=== PATIENT | male | born 1955 | race African-American/Black ===

== ENCOUNTER 2016-02-28 21:39 | Emergency (ER) | payer OTHER ==
[2016-02-28 22:16] LABS: MANUAL DIFF NEEDED? NO
[2016-02-28 22:22] LABS: URINE CULTURE PL NEEDED? NO; URINE SOURCE VOIDED
[2016-02-28 22:25] LABS: BASO% 1.1 % (0.0-0.8); EOS# 0.14 X1000 (0.0-0.7); EOS% 1.7 % (0.0-10.0); HEMATOCRIT 44.5 % (42.0-52.0); HEMOGLOBIN 15.4 g/dL (14.0-18.0); IMM GRAN# 0.02 X1000 (0.0-0.04); IMM GRAN% 0.2 % (0.0-0.5); LYMPH# 3.11 X1000 (1.2-3.4); LYMPH% 37.7 % (20.5-51.1); MCH 29.1 PG (27-31); MCHC 34.6 g/dL (33-37); MONO% 8.5 % (1.7-9.3); MPV 11.1 FL (7.4-10.4); NEUT% 50.8 % (42.2-75.2); PLT 255 X1000 (130-400)
--- NOTE | 2016-02-28 22:28 | PROVIDER DOCUMENTATION ---
HPI-General Adult - General Chief Complaint: High Blood Sugar Stated Complaint: HIGH BLOOD SUGAR Time Seen by Provider: 02/28/16 22:11 Source: patient Allergies/Adverse Reactions: Patient Allergies Allergy/AdvReac Type Severity Reaction Status Date / Time No Known Allergies Allergy Verified 02/28/16 21:53 Home Medications: Insulin Glargine [Lantus] 20 unit SUBQ QAM 05/15/15 LISINOpril [Prinivil] 5 mg PO DAILY 05/15/15 SIMVAstatin [Zocor] 40 mg PO QHS 05/15/15 - History of Present Illness -Gen Adult Nature of Presenting Problems: 60 y/o AAM presents to the ED saying his blood sugar read high on his monitor at home. Pt states for about a month now complains of dry mouth, frequent urination, excessive thirst and blurry vision. Pty states he has been taking Lantus and was on Metformin although states he stopped taking it. Location of Pain/Injury: reports: none Pain Radiation: reports: no radiation Quality of Pain: reports: none Onset/Duration: reports: gradual Timing: reports: still present - Diabetes Related Context Context: reports: high blood sugar Review of Systems - Adult - REVIEW OF SYSTEMS - ADULT Constitutional: denies: chills, fever Eyes: reports: blurred vision. denies: discharge, dry eyes, eye pain Ears, Nose, Mouth & Throat: reports: other (dry mouth) Cardiovascular: denies: chest pain, edema Respiratory: denies: cough, shortness of breath, wheezing Gastrointestinal: denies: abdominal pain, nausea, vomiting Genitourinary: reports: frequency, urgency. denies: dysuria, hematuria, incontinence Musculoskeletal: reports: no symptoms reported Integumentary: reports: no symptoms reported Neurological: reports: no symptoms reported Psychiatric: reports: no symptoms reported Endocrine: reports: no symptoms reported Hematologic/Lymphatic: reports: no symptoms reported Allergic/Immunologic: reports: no symptoms reported All Other Systems: Reviewed and Negative Past History - Adult - PAST MEDICAL HISTORY-ADULT Review of Records: reports: Old Records Reviewed, Nursing Assessment Review, Medications Reviewed Major Childhood Illnesses: reports: denies history Cardiovascular: reports: HTN, hyperlipidemia. denies: cardiac disease, A-Fib, CAD, [place] Respiratory: reports: denies history Gastrointestinal: reports: denies history Obstetrical/Gynecological: reports: denies history Genitourinary: reports: kidney stones. denies: cancer, kidney disease, polycystic kidney disease, prostate cancer Musculoskeletal: reports: chronic pain, intervertebral disc disease Neurological: reports: denies history Psychiatric: reports: denies history Endocrine/Immune: reports: Diabetes. denies: thyroid disorder Other Conditions: reports: denies history - PRIOR SURGERIES/PROCEDURES Surgical/Procedure History: reports: none, other (partial right lober) - FAMILY HISTORY Family History: reviewed, not pertinent Physical Exam-General - PHYSICAL EXAM-ADULT Initial Vital Signs Reviewed: Yes - CONSTITUTIONAL General Appearance: appears well, alert, no apparent distress - EYES Eyes: PERRL/EOMI, pink conjunctivae - HEAD, EARS, NOSE, MOUTH & THROAT HENMT: moist mucous membranes, normal ENT inspection, TMs normal, pharynx normal - NECK Neck: non-tender, full range of motion, supple - RESPIRATORY Respiratory: lungs clear, normal breath sounds, no pleuratic chest pain, no respiratory distress, no accessory muscle use - CARDIOVASCULAR Cardiovascular: normal peripheral pulses, regular rate, rhythm - GASTROINTESTINAL (ABDOMEN) Abdominal Exam: normal bowel sounds, non tender, soft - MUSCULOSKELETAL Back Exam: normal inspection, no CVA tenderness, no vertebral tenderness Extremity: normal range of motion, non-tender, normal gait - SKIN Integumentary: normal color, normal turgor, warm/dry - NEUROLOGIC Neurologic: grossly normal, no motor/sensory deficits - PSYCHIATRIC Psych/Mental Status: normal mood/affect, normal thought content, normal thought process, oriented x 3 Progress - PLAN OF CARE/RESULTS Progress/Plan/Lab Results: Orders Category Date Time Status Finger Stick Blood Sugar (ED) DIRECTED Care 02/29/16 00:56 Active A1C [A1C HGB W EST AVG GLUCOSE] [CHEM] Stat Lab 02/28/16 22:10 Completed CBC WITH DIFF [HEME] Stat Lab 02/28/16 22:10 Completed COMPREHENSIVE METABOLIC PANEL [CHEM] Stat Lab 02/28/16 22:10 Completed UA [URINALYSIS PL W/POSS RFLX CULT] [URINALYSIS] Stat Lab 02/28/16 22:15 Completed 0.9% Sodium Chloride Inj [Ns] 1,000 ml Med 02/28/16 22:48 Discontinued .ROUTE As Directed 0.9% Sodium Chloride Inj [Ns] 1,000 ml Med 02/28/16 22:48 Discontinued IV 999 mls/hr 0.9% Sodium Chloride Inj [Ns] 1,000 ml Med 02/28/16 23:40 Discontinued IV 999 mls/hr Insulin Lispro ([place]) [Humalog ([place])] Med 02/28/16 22:49 Discontinued 20 units SUBQ NOW ONE Vital Signs Temp Pulse Resp BP Pulse Ox 02/28/16 21:49 98 F 84 16 135/74 97 No Known Allergies Allergy (Verified 02/28/16 21:53) Insulin Glargine [Lantus] 20 unit SUBQ QAM 05/15/15 LISINOpril [Prinivil] 5 mg PO DAILY 05/15/15 SIMVAstatin [Zocor] 40 mg PO QHS 05/15/15 Insulin Glargine,Hum.rec.anlog [Lantus Solostar] 24 unit SQ DAILY #5 insuln.pen 02/29/16 Laboratory 02/28/16 02/28/16 02/28/16 22:15 22:10 22:10 WBC 8.26 RBC 5.30 Hgb 15.4 Hct 44.5 MCV 84.0 MCH 29.1 MCHC 34.6 RDW Std Deviation 12.4 Plt Count 255 MPV 11.1 H Immature Gran % (Auto) 0.2 Neut % (Auto) 50.8 Lymph % (Auto) 37.7 [place] % (Auto) 8.5 Eos % (Auto) 1.7 Baso % (Auto) 1.1 H Immature Gran # (Auto) 0.02 Neut # (Auto) 4.20 Lymph # (Auto) 3.11 [place] # (Auto) 0.70 H Eos # (Auto) 0.14 Baso # (Auto) 0.09 Sodium Potassium Chloride Carbon Dioxide Anion Gap BUN Creatinine Estimated GFR/1.73 m2 BUN/Creatinine Ratio Glucose Estimat Average Glucose 468 Hemoglobin A1c 17.9 H Calculated Osmolality Calcium Total Bilirubin AST ALT Alkaline Phosphatase Total Protein Albumin Globulin Albumin/Globulin Ratio Urine Source VOIDED Urine Color YELLOW Urine Clarity CLEAR Urine pH 6.0 Ur Specific [place] 1.010 Urine Protein NEGATIVE Urine Ketones 2+(Moderate) A Urine Blood NEGATIVE Urine Nitrite NEGATIVE Urine Bilirubin NEGATIVE Urine Urobilinogen NORMAL Urine Microscopic RBC <10 Urine WBC NEGATIVE Urine Microscopic WBC <10 Ur Epithelial Cells <10 Urine Bacteria NEGATIVE Urine Glucose 3+(500 mg/dL) A 02/28/16 22:10 WBC RBC Hgb Hct MCV MCH MCHC RDW Std Deviation Plt Count MPV Immature Gran % (Auto) Neut % (Auto) Lymph % (Auto) [place] % (Auto) Eos % (Auto) Baso % (Auto) Immature Gran # (Auto) Neut # (Auto) Lymph # (Auto) [place] # (Auto) Eos # (Auto) Baso # (Auto) Sodium 127 L Potassium 5.0 Chloride 86 L Carbon Dioxide 28 Anion Gap 14 BUN 27 H Creatinine 1.4 H Estimated GFR/1.73 m2 52 BUN/Creatinine Ratio 19 Glucose 825 H* Estimat Average Glucose Hemoglobin A1c Calculated Osmolality 299 Calcium 9.6 Total Bilirubin 0.30 AST 23 ALT 49 H Alkaline Phosphatase 96 Total Protein 7.4 Albumin 4.5 Globulin 3.0 Albumin/Globulin Ratio 2.0 Urine Source Urine Color Urine Clarity Urine pH Ur Specific [place] Urine Protein Urine Ketones Urine Blood Urine Nitrite Urine Bilirubin Urine Urobilinogen Urine Microscopic RBC Urine WBC Urine Microscopic WBC Ur Epithelial Cells Urine Bacteria Urine Glucose - REASSESSMENT Reassessment #1 Time Reassessed: 01:05 Status: improving Reassessment Comment: Finger stick 279 Departure - Departure Time of Disposition Order: 01:04 DIAGNOSIS: Diabetes, Noncompliance with medication regimen, Hyperglycemia, Uncontrolled blood glucose Disposition: HOME 01 Certified Medical Emergency: Emergent Condition: Stable Additional Instructions: Follow up with PCP or [facility] Follow Up Instructions: You have been treated by a care provider in the Emergency Department. These instructions are being provided to you so you can have an understanding of how to care for yourself upon discharge. Upon discharge from the Emergency Department, you are responsible for making arrangements for follow-up care by a physician of your choice. Take all prescribed medications as directed. Return to the Emergency Department immediately for any new or worsening symptoms. You may call the Physician Referral phone number at [phone] to obtain a list of Physicians who are taking new patients. Prescriptions: Insulin Glargine,Hum.rec.anlog [Lantus Solostar] 24 unit SQ DAILY #5 insuln.pen Referrals: None,PCP [Primary Care Provider] - Abdullahi Burnette MD [STAFF PHYSICIAN] - Attestation - Scribe Verification/Attestation Scribe:: Keenan Cheng Acting as Scribe for:: Doe Luna Scribe documention review:: This chart was documented by a scribe and accurately reflects the service the provider performed and the decisions made by the provider.
[2016-02-28 22:41] LABS: ALBUMIN 4.5 g/dL (3.5-5.0); CALCIUM 9.6 mg/dL (8.8-10.2); TOTAL BILIRUBIN 0.3 mg/dL (0.20-1.00); TOTAL PROTEIN 7.4 g/dL (6.3-8.3)
[2016-02-28] MEDS ORDERED: NS 1,000 ML IV ONE ×2 (22:48→23:40)
[2016-02-28] MEDS ORDERED: NS 1,000 ML ONE (22:48)
[2016-02-28] MEDS ORDERED: HUMALOG (PARKWAY) SUBQ ONE (22:49)
[2016-02-28 22:54] LABS: HEMOGLOBIN A1C 17.9 % (4.8-6.0)
[2016-02-28 23:06] LABS: BILIRUBIN URINE NEGATIVE (NEGATIVE); BLOOD URINE NEGATIVE (NEGATIVE); CLARITY CLEAR (CLEAR); COLOR YELLOW; LEUKOCYTES URINE NEGATIVE (NEGATIVE); NITRITE URINE NEGATIVE (NEGATIVE); PROTEIN URINE NEGATIVE (NEGATIVE); URINE EPITHELIAL CELLS <10 /HPF (<10); URINE RBC <10 /HPF (<10); URINE WBC <10 /HPF (<10); UROBILINOGEN URINE NORMAL
[2016-02-29 01:32] VITALS: BP 120/84
== END 2016-02-29 01:30 | disposition home or self-care (01) ==
LOC: P.ED 21:39
DX: E11.65 Type 2 diabetes mellitus with hyperglycemia (principal); Z91.14 Patient's other noncompliance with medication regimen; R35.0 Frequency of micturition; R63.1 Polydipsia; R68.2 Dry mouth, unspecified; H53.8 Other visual disturbances; R39.15 Urgency of urination; Z79.899 Other long term (current) drug therapy; I10 Essential (primary) hypertension; E78.5 Hyperlipidemia, unspecified; Z87.442 Personal history of urinary calculi; Z79.4 Long term (current) use of insulin; G89.29 Other chronic pain; M48.9 Spondylopathy, unspecified
CPT/HCPCS: 80053; 81001; 82948; 83036; 85025; 96360; 96361; 96372; J1815; J7030